=== PATIENT | female | born 1935 | race Caucasian/White ===

== ENCOUNTER 2018-02-16 05:58 | Day surgery (SDC) | payer MEDICARE, BC ==
--- NOTE | 2018-02-15 14:41 | RAD ---
Study: Frontal and Lateral Views of the Chest. Indication: pre op Comparison: None. Impression: Cardiomegaly without failure. Emphysema noted. Subtle opacity right lung apex noted and could reflect scarring but is indeterminate. Further characterization with contrast-enhanced CT chest recommended. Otherwise, lungs clear. Age-indeterminate anterior wedge formulate mid thoracic vertebral body. Correlation with point tenderness recommended. Osteopenia. If this is a new finding, DEXA scan recommended as well as evaluation for possible osteoporosis treatment. Electronically signed by: Jurgen Stanley MD 02/15/2018 2:39 PM CDT
[2018-02-16] MEDS ORDERED: PROPOFOL 200 MG/20 ML VIAL IV ONE (07:00)
[2018-02-16] MEDS ORDERED: raNITIdine HCL INJ 25 MG/ML VIAL ONE (07:00)
[2018-02-16] MEDS ORDERED: DEXAMETHASONE INJ 10 MG/ML VIAL ONE (07:00)
[2018-02-16] MEDS ORDERED: LIDOCAINE 1% 10 ML VIAL INJ ONE (07:00)
[2018-02-16] MEDS ORDERED: ePHEDrine SULF 50 MG/ML ONE (07:00)
[2018-02-16] MEDS ORDERED: METOCLOPRAMIDE HCL INJ 10 MG/2 ML VIAL ONE (07:00)
[2018-02-16] MEDS ORDERED: KETOROLAC TROMETHAMINE INJ 30 MG/ML VIAL ONE (07:00)
[2018-02-16] MEDS ORDERED: LACTATED RINGERS 1,000 ML ONE (07:16)
[2018-02-16] MEDS ORDERED: SODIUM CHL 0.9% 100ML MINI-BAG 100 ML IVPB ONE (07:16)
[2018-02-16] MEDS ORDERED: ceFAZolin SODIUM 1 GM VIAL ONE (07:16)
[2018-02-16] MEDS ORDERED: fentaNYL CITRATE INJ 50 MCG/ML AMP ONE (08:14)
[2018-02-16] MEDS ORDERED: BUPIVACAINE 0.25% W/EPI 50 ML VIAL INJ ONE (08:19)
[2018-02-16] MEDS ORDERED: ACETAMINOPHEN IV 1000MG 100 ML ONE (09:03)
[2018-02-16] MEDS ORDERED: HYDROmorphone HCL INJ 2 MG/ML VIAL ONE (11:01)
--- NOTE | 2018-02-16 11:11 | OP ---
DATE OF PROCEDURE: 02/16/18 PREOPERATIVE DIAGNOSIS: 1. Right inguinal hernia. POSTOPERATIVE DIAGNOSIS: 1. Right inguinal hernia with indirect and femoral component. PROCEDURE: 1. Repair of indirect and femoral inguinal hernia on the right. SURGEON: Saad Dunbar MD. SOFTWARE PROJECT LEAD: None. ANESTHESIA: General laryngeal mask anesthesia and local infiltration of 0.25% Marcaine with epinephrine. INDICATION: The patient is an 82-year-old female who has developed a tender mass in her right groin. It has been reducible but has been becoming increasingly uncomfortable. The patient was brought to the Surgical Suite today for repair of same. FINDINGS: She had a small indirect hernia and a femoral hernia with a small amount of preperitoneal fat within int. PROCEDURE: After adequate general laryngeal mask anesthesia was obtained, the patient was prepped and draped in the usual sterile manner. At this point, a surgical time-out was taken. The right lower quadrant was infiltrated with local anesthesia. An oblique incision was made with a sharp knife. Dissection was carried down through the skin and subcutaneous tissue to the external oblique fascia, which was opened in the direction of the fibers to the external ring. The floor was explored. The nerves were dissected free and retracted along with the round ligament using a Guerda drain. The hernia defect lateral to the round ligament was identified, dissected free and reduced below the floor of the canal and repaired with interrupted [id number] sutures of 2-0 Vicryl in somewhat of an imbricating technique. Also, the floor of the canal medially had generalized weakness and this was also reapproximated with imbricating sutures of 2-0 Vicryl. The area of the femoral canal was identified and noted to have fatty tissue. The superior aspect of the femoral canal was opened bluntly and with electrocautery. This tissue was dissected free and reduced superior. At this point, a Surgimesh mesh was sutured to Ash's ligament laterally out to the edge of the femoral canal. The top of the femoral canal was then sutured to this and going laterally using 2-0 Vicryl simple sutures. The remaining mesh was sutured right on the canal and around the round ligament and the nerves in the usual manner with interrupted 2-0 Vicryl sutures. When this was done, the wound was irrigated with saline. Hemostasis was noted to be adequate. At this point, the round ligament and nerves were placed back in the floor of the canal. The external oblique fascia was then closed with running 3-0 Vicryl suture. The canal and subcutaneous tissue above, below and lateral to the incision were infiltrated with local anesthesia. The Fallon's fascia was approximated with interrupted 3-0 Chromic suture. Skin edges were approximated with skin stapler. Sterile pressure dressing was applied. The patient was awakened and taken to the Recovery Room in good and stable condition. Estimated blood loss was less than 50 mL. All sponge, needle and instrument counts were correct. #[id number] [facility]
[2018-02-16] MEDS ORDERED: ONDANSETRON INJ 4 MG/2 ML VIAL ONE (11:15)
[2018-02-16 11:58] VITALS: O2SAT 98
[2018-02-16 13:50] VITALS: BP 148/77; TEMP 97.9
== END 2018-02-16 13:30 | disposition home or self-care (01) ==
LOC: AMB 05:58
PROVIDERS: ATTEND Surgery
DX: K40.90 Unilateral inguinal hernia, without obstruction or gangrene, not specified as recurrent (principal); K41.90 Unilateral femoral hernia, without obstruction or gangrene, not specified as recurrent; Z88.8 Allergy status to other drugs, medicaments and biological substances; Z79.899 Other long term (current) drug therapy
CPT/HCPCS: 00830; 36415; 49505; 49550; 71046; 80053; 81001; 85025; 93005; J0690; J1100; J1170; J1885; J2405; J2765; J2780; J3010; J3490; J7050; J7120